=== PATIENT | male | born 1955 | race Caucasian/White ===

== ENCOUNTER 2020-10-28 07:06 | Day surgery (SDC) | payer OTHER ==
[~2020-10-28 07:06] MED LIST: CATAFLAM50 MG PO; CIPRO500 MG PO; ULTRACET PO
== END 2020-10-28 11:45 | disposition home or self-care (01) ==
LOC: AMB-ENDOS 07:06
PROVIDERS: ATTEND Surgery
DX: K62.89 Other specified diseases of anus and rectum (principal); K64.8 Other hemorrhoids; Z20.822 Contact with and (suspected) exposure to COVID-19